=== PATIENT | male | born 1965 | race African-American/Black ===

== ENCOUNTER 2017-04-14 19:23 | Emergency (ER) | payer OTHER ==
[~2017-04-14] VITALS: Ht 185.4 cm; Wt 104.3 kg
[2017-04-14 19:44] VITALS: BP 158/99
[2017-04-14] MEDS ORDERED: CYCL10TA2 PO (20:25)
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
== END 2017-04-14 20:38 | disposition home or self-care (01) ==
LOC: ER 19:23
DX: M54.5 Low back pain (principal); V49.88XA Car occupant (driver) (passenger) injured in other specified transport accidents, initial encounter; Y93.89 Activity, other specified; Y99.8 Other external cause status; Y92.488 Other paved roadways as the place of occurrence of the external cause
CPT/HCPCS: 99283